=== PATIENT | female | born 1975 | race Two or more races ===

== ENCOUNTER 2020-06-04 20:36 | Emergency (ER) | payer SELFPAY ==
[2020-06-04] MEDS ORDERED: IPRATROPIUM/ALBUTEROL 0.5-2.5 MG/3 ML AMPUL NEB ONE (21:43)
[2020-06-04 22:39] LABS: ABSOLUTE LYMPHOCYTES (AUTO) 1.4 10^3/uL (0.5-4.7); ABSOLUTE MONOCYTES (AUTO) 0.5 10^3/uL (0.1-1.4); ABSOLUTE NEUT (AUTO) 6.2 10^3/uL (1.7-8.2); BASOPHILS % (AUTO) 0.3 % (0-2); HEMOGLOBIN 14.4 g/dL (12.0-15.5); MEAN CORPUSCULAR HEMOGLOBIN 32.8 pg (27.0-33.4); MEAN CORPUSCULAR HGB CONC 35.2 g/dL (32.0-36.0); MEAN CORPUSCULAR VOLUME 93 fl (80-97); MONOCYTES % (AUTO) 6.3 % (3-13); PLATELET COUNT 299 10^3/uL (150-450); RED CELL DISTRIBUTION WIDTH 13.4 % (11.5-14.0); SEGMENTED NEUTROPHILS % (AUTO) 76.4 % (42-78); TOTAL CELLS COUNTED % (AUTO) 100 %; WHITE BLOOD COUNT 8.1 10^3/uL (4.0-10.5)
[2020-06-04 22:56] LABS: ALBUMIN 4.3 g/dL (3.5-5.0); ALKALINE PHOSPHATASE 97 U/L (38-126); ANION GAP 8 (5-19); ASPARTATE AMINO TRANSFERASE 54 U/L (14-36); BILIRUBIN,DIRECT 0.2 mg/dL (0.0-0.4); BILIRUBIN,TOTAL 0.3 mg/dL (0.2-1.3); BLOOD UREA NITROGEN 9 mg/dL (7-20); CALCIUM 8.8 mg/dL (8.4-10.2); CARBON DIOXIDE 29 mmol/L (22-30); CHLORIDE 101 mmol/L (98-107); GLUCOSE 141 mg/dL (75-110); POTASSIUM 4.2 mmol/L (3.6-5.0); TOTAL PROTEIN 8.2 g/dL (6.3-8.2)
[2020-06-04 23:04] LABS: A TYPE INFLUENZA AG NEGATIVE (NEGATIVE); B INFLUENZA AG NEGATIVE (NEGATIVE)
--- NOTE | 2020-06-04 23:45 | RADIOLOGY REPORT (SQ) ---
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 Findings: The cardiomediastinal silhouette is normal in size. No pneumothorax is seen. There are bilateral interstitial airspace opacities. No discrete pleural effusion is apparent. Impression: There are bilateral interstitial airspace opacities which could reflect atypical infection.
--- NOTE | 2020-06-05 10:40 | ER Document Report ---
ED Flu Like - General Chief Complaint: Flu Symptoms Stated Complaint: FEVER,HEADACHE,WEAKNESS Time Seen by Provider: 06/04/20 21:35 Primary Care Provider: [facility] [Provider Group] - Follow up as needed - HPI Notes: Patient is a 44 y/o female with no medical hx who presents with dry cough and fever that began four days ago. She reports weakness, chest tightness and nausea but denies chest pain, shortness of breath, abdominal pain, vomiting, diarrhea, and sore throat. She denies any sick contacts or potential Covid exposures. She reports being diagnosed with prediabetes in the past but has not been put on any medication for this. She denies tobacco and alcohol use. - Related Data Allergies/Adverse Reactions: No Known Allergies Allergy (Unverified 06/04/20 21:35) Past Medical History - General Information source: Patient - Social History Smoking Status: Never Smoker Frequency of alcohol use: None Drug Abuse: None Family History: Reviewed & Not Pertinent Review of Systems - Review of Systems Constitutional: See HPI EENT: No symptoms reported Cardiovascular: No symptoms reported Respiratory: See HPI Gastrointestinal: See HPI Genitourinary: No symptoms reported Female Genitourinary: No symptoms reported Musculoskeletal: No symptoms reported Skin: No symptoms reported Hematologic/Lymphatic: No symptoms reported Neurological/Psychological: No symptoms reported Physical Exam - Vital signs Vitals: Temp Pulse Resp BP Pulse Ox 98.3 F 85 18 118/73 100 06/04/20 20:48 06/04/20 20:48 06/04/20 20:48 06/04/20 20:48 06/04/20 20:48 - Notes Notes: PHYSICAL EXAMINATION: VITALS: Vitals reviewed and within normal limits. GENERAL: Well-appearing, well-nourished and in no acute distress. HEAD: Atraumatic, normocephalic. EYES: Pupils equal, round, and reactive to light, extraocular movements intact, sclera anicteric, conjunctiva are normal. ENT: Nares patent. Moist mucous membranes. Oropharynx clear without exudates. NECK: Normal range of motion, supple without lymphadenopathy. LUNGS: Breath sounds clear to auscultation bilaterally and equal. No wheezes, rales, or rhonchi. HEART: Regular, rate, and rhythm without murmurs. ABDOMEN: Soft, nontender, normoactive bowel sounds. No guarding, no rebound. No masses appreciated. EXTREMITIES: Normal range of motion, no pitting or edema. No cyanosis. NEUROLOGICAL: No focal neurological deficits. Moves all extremities spontaneous ly and on command. PSYCH: Normal mood, normal affect. SKIN: Warm, Dry, normal turgor, no rashes or lesions noted. Course - Re-evaluation Re-evalutation: Patient is a 44-year-old female with no medical history who presents with n onproductive cough and fever for the past 4 days. Vital signs are within normal limits and patient is afebrile. On exam, lungs are clear to auscultation bilaterally with a dry cough noted. CBC and CMP are unremarkable and within normal limits. Serum hCG is negative. Rapid flu is negative. COVID-19 results are pending. Chest x-ray shows bilateral interstitial airspace opacities which could reflect atypical infection. I consulted my supervising physician, Dr. Russell, who recommends treating the patient with azithromycin and steroids. Return precautions and follow-up instructions given. Patient understands and is in agreement with the plan. Patient will be discharged home with prescriptions. The patient was evaluated during the global COVID-19 pandemic and that diagnosis was suspected/considered upon their initial presentation. Their evaluation, treatment and testing was consistent with current guidelines for patients who present with complaints or symptoms that may be related to COVID-19. - Vital Signs Vital signs: Temp Pulse Resp BP Pulse Ox 97.8 F 88 18 131/83 H 99 06/05/20 11:00 06/05/20 11:00 06/05/20 11:00 06/05/20 11:00 06/05/20 11:00 - Laboratory Results Result Diagrams: 06/04/20 22:22 06/04/20 22:22 Laboratory Results Interpreted: 06/04/20 22:22 Creatinine 0.45 L Glucose 141 H AST 54 H ALT 51 H Critical Laboratory Results Reviewed: No Critical Results - Radiology Results Critical Radiology Results Reviewed: No Critical Results Discharge - Discharge Clinical Impression: Suspected COVID-19 virus infection, Cough Pneumonia Qualifiers: Pneumonia type: due to unspecified organism Laterality: bilateral Lung location: unspecified part of lung Qualified Code(s): J18.9 - Pneumonia, unspecified organism Condition: Stable Disposition: HOME, SELF-CARE Instructions: COVID-19 Guidance for Persons Under Investigation Additional Instructions: You have been diagnosed with a pneumonia. It is very important that you take all of your antibiotics until they are gone even if you are feeling better. Please return to the emergency department immediately if you began having worsening shortness of breath, become confused, have worsening pain, pass out, have persistent vomiting that prevents you from being able to drink fluids for more than 12 hours, or have any other symptoms that are worrisome to you. Please follow-up with your primary care doctor in the next 1-2 days. Prescriptions: Prednisone [Deltasone 20 mg Tablet] 60 mg PO DAILY 5 Days #15 tablet Azithromycin [Zithromax 250 mg Tablet] 250 mg PO ASDIR PRN #6 tablet PRN Reason: Referrals: [facility] [Provider Group] - Follow up as needed
[2020-06-05 11:02] VITALS: BP 131/83
== END 2020-06-05 11:00 | disposition home or self-care (01) ==
LOC: ER 20:36
DX: U07.1 COVID-19 (principal); J18.9 Pneumonia, unspecified organism; R53.1 Weakness; R07.89 Other chest pain; R05 Cough; R50.9 Fever, unspecified; R11.0 Nausea
CPT/HCPCS: 99284; 36415; 84702; 85025; 87635; 80053; 87804; 71045; C9803